=== PATIENT | female | born 1965 | race African-American/Black ===

== ENCOUNTER 2016-03-16 22:44 | Emergency (ER) | payer BC ==
[~2016-03-16] VITALS: Ht 154.9 cm; Wt 91.4 kg
[~2016-03-16 22:44] MED LIST: AUGMENTIN875 MG PO; BENADRYL25 MG PO; BENADRYL50 MG PO; CARVEDILOL25 MG PO; CATAPRES0.2 MG PO; CLINDAMYCIN HC300 MG PO; CLONIDINE HCL0.2 MG PO; COREG25 M1 PO; COUMADIN2 MG PO; CRESTOR10 MG PO; CRESTOR5 MG PO; FLONASE16 G1 BOTH NARES; HYDROCODON-ACE1 EAC8 PO; JANTOVEN7.5 MG PO; K-DUR10 ME1 PO; KLOR-CON20 MEQ PO; METHOCARBAMOL750 MG PO; METOPROLOL SUC100 MG PO; MICRO-K10 ME2 PO; PERCOCET 5/31 TABLET PO; PREDNISONE20 MG PO; PREDNISONE50 MG PO; TIZANIDINE HCL4 MG PO; TRIAMCINOLONE A15 G2 TP; VENTOLIN HFA18 GM IH; WARFARIN SODIUM6 MG PO; ZESTORETIC 20-1 EAC1 NG; ZESTORETIC 20-1 EAC1 PO; ZESTRIL,PRINIVI20 MG PO; ZITHROMAX Z-PA250 MG PO; [UNRECOGNIZED DRUG - OTHER] PO
[2016-03-17 02:37] LABS: HEMATOCRIT 41.4 % (36.0-46.0); MCH 30.1 PG (29.0-34.0); MCHC 33.8 G/DL (30.0-36.0); MEAN PLAT.VOLUME 11.8 uM^3 (9.5-12.4); PLATELET COUNT 153 K/uL (156-360); RBC DIS.WIDTH-CV 13.5 % (11.8-14.6); RBC DIS.WIDTH-SD 43.8 % (39-53); RED BLOOD COUNT 4.65 M/uL (3.80-5.20); WHITE BLOOD COUNT 8.5 K/uL (4.1-10.2)
[2016-03-17 02:42] LABS: CHLORIDE 106 mEq/L (99-109); POTASSIUM 3.2 mEq/L (3.7-5.4); SODIUM 141 mEq/L (136-147)
[2016-03-17 02:44] LABS: GLUCOSE 124 mg/dL (70-99)
[2016-03-17 02:45] LABS: ANION GAP 8 MEQ/L (2-14)
[2016-03-17 02:47] LABS: GFR ESTIMATE (CALCULATED) > 59 mL/min/
[2016-03-17 02:48] LABS: UREA NITROGEN (BUN) 18 mg/dL (9-23)
[2016-03-17 02:52] LABS: TROP-I INTERPRETATION NEGATIVE; TROPONIN-I < 0.01 ng/mL (0.0-0.30)
[2016-03-17 02:56] LABS: QUANTITATIVE HCG < 4.0 MIU/ML
[2016-03-17] MEDS ORDERED: LEVAQUIN750 MG PO (05:13)
[2016-03-17 05:30] VITALS: BP 128/70
== END 2016-03-17 05:44 | disposition left against medical advice (07) ==
LOC: EME 22:44
PROVIDERS: Emergency Medicine
DX: R91.8 Other nonspecific abnormal finding of lung field (principal); J18.9 Pneumonia, unspecified organism; R07.89 Other chest pain; Z95.4 Presence of other heart-valve replacement; Z79.01 Long term (current) use of anticoagulants; F17.200 Nicotine dependence, unspecified, uncomplicated
CPT/HCPCS: 71010; 71260; 80048; 84484; 84702; 85027; 93005; 99281; 99285; J7030

== ENCOUNTER 2016-03-25 11:14 | Emergency (ER) | payer BC ==
[~2016-03-25] VITALS: Ht 152.4 cm; Wt 89.9 kg
[~2016-03-25 11:14] MED LIST changes: +LEVAQUIN750 MG PO
[2016-03-25 14:21] LABS: EOSINOPHIL (%) 0.7 % (0-5); EOSINOPHIL COUNT 0.1 K/uL (0-0.3); HEMATOCRIT 43.3 % (36.0-46.0); IMMATURE GRANULOCYTE (%) 0.1 % (0.0-0.7); IMMATURE GRANULOCYTE COUNT 0.1 K/uL; LYMPHOCYTE COUNT 1.8 K/uL (1.0-2.8); MCH 29.4 PG (29.0-34.0); MCHC 34.4 G/DL (30.0-36.0); MCV 85.6 FL (83-99); MONOCYTE (%) 7.7 % (3-12); MONOCYTE COUNT 0.5 K/uL (0-0.8); NEUTROPHIL COUNT 4.4 K/uL (1.8-6.4); PLATELET COUNT 136 K/uL (156-360); RBC DIS.WIDTH-CV 13.5 % (11.8-14.6); RBC DIS.WIDTH-SD 42.1 % (39-53); RED BLOOD COUNT 5.06 M/uL (3.80-5.20); WHITE BLOOD COUNT 6.8 K/uL (4.1-10.2)
[2016-03-25 14:29] LABS: CHLORIDE 106 mEq/L (99-109); POTASSIUM 3.3 mEq/L (3.7-5.4); SODIUM 140 mEq/L (136-147)
[2016-03-25 14:31] LABS: GLUCOSE 104 mg/dL (70-99)
[2016-03-25 14:32] LABS: D-DIMER ELISA < 0.15 mg/L FEU (< 0.57)
[2016-03-25 14:33] LABS: ANION GAP 12 MEQ/L (2-14)
[2016-03-25 14:35] LABS: GFR ESTIMATE (CALCULATED) > 59 mL/min/
[2016-03-25 14:36] LABS: UREA NITROGEN (BUN) 12 mg/dL (9-23)
[2016-03-25 14:37] LABS: PROTHROMBIN TIME 54.1 (9.2-11.2)
[2016-03-25 14:50] LABS: TROP-I INTERPRETATION NEGATIVE; TROPONIN-I < 0.01 ng/mL (0.0-0.30)
[2016-03-25] MEDS ORDERED: LIDOCARE1 EACH TP (16:45)
[2016-03-25 17:37] VITALS: BP 118/81
== END 2016-03-25 17:45 | disposition left against medical advice (07) ==
LOC: EME 11:14
PROVIDERS: Physician Assistant
DX: R07.81 Pleurodynia (principal); R91.1 Solitary pulmonary nodule; I10 Essential (primary) hypertension; Z95.2 Presence of prosthetic heart valve; Z79.01 Long term (current) use of anticoagulants; F17.200 Nicotine dependence, unspecified, uncomplicated
CPT/HCPCS: 71020; 71275; 80048; 83605; 84484; 85025; 85379; 85610; 87040; 93005; 99281; 99284; J3010; J7030

== ENCOUNTER 2016-10-25 09:33 | Emergency (ER) | payer BC ==
[~2016-10-25] VITALS: Ht 152.4 cm; Wt 88.4 kg
[~2016-10-25 09:33] MED LIST changes: +LIDOCARE1 EACH TP
[2016-10-25] MEDS ORDERED: SIMVASTATIN40 MG PO (10:08)
[2016-10-25] MEDS ORDERED: IPRATROPIUM BRO15 ML BOTH NARES (10:09)
[2016-10-25] MEDS ORDERED: HYDROCODON-ACE1 EAC9 PO (10:09)
[2016-10-25] MEDS ORDERED: METHOCARBAMOL750 MG PO (10:09)
[2016-10-25] MEDS ORDERED: FLUTICASONE PRO16 GM BOTH NARES (10:10)
[2016-10-25] MEDS ORDERED: BENZONATATE100 MG PO (10:10)
[2016-10-25] MEDS ORDERED: COUMADIN10 MG PO (10:11)
[2016-10-25] MEDS ORDERED: TIZANIDINE HCL4 MG PO (10:12)
[2016-10-25 11:10] VITALS: BP 140/98
== END 2016-10-25 11:11 | disposition home or self-care (01) ==
LOC: EME 09:33
DX: M72.2 Plantar fascial fibromatosis (principal)
CPT/HCPCS: 73630; 99281; 99283

== ENCOUNTER 2016-11-17 23:26 | Emergency (ER) | payer BC ==
[~2016-11-17] VITALS: Ht 165.1 cm; Wt 83.1 kg
[~2016-11-17 23:26] MED LIST changes: +BENZONATATE100 MG PO; +COUMADIN10 MG PO; +FLUTICASONE PRO16 GM BOTH NARES; +HYDROCODON-ACE1 EAC9 PO; +IPRATROPIUM BRO15 ML BOTH NARES; +SIMVASTATIN40 MG PO
[2016-11-18 03:04] LABS: HEMATOCRIT 45.1 % (36.0-46.0); MCHC 34.1 G/DL (30.0-36.0); MCV 87.9 FL (83-99); MEAN PLAT.VOLUME 11.7 uM^3 (9.5-12.4); PLATELET COUNT 156 K/uL (156-360); RBC DIS.WIDTH-CV 13.2 % (11.8-14.6); RBC DIS.WIDTH-SD 42.8 % (39-53); RED BLOOD COUNT 5.13 M/uL (3.80-5.20); WHITE BLOOD COUNT 7.8 K/uL (4.1-10.2)
[2016-11-18 03:15] LABS: CHLORIDE 100 mEq/L (99-109); POTASSIUM 2.9 mEq/L (3.7-5.4); SODIUM 141 mEq/L (136-147)
[2016-11-18 03:18] LABS: GLUCOSE 99 mg/dL (70-99)
[2016-11-18 03:19] LABS: ANION GAP 14 MEQ/L (2-14)
[2016-11-18 03:20] LABS: TOTAL BILIRUBIN 0.7 mg/dL (0.0-1.0)
[2016-11-18 03:21] LABS: ALKALINE PHOSPHATASE 56 IU/L (3-129); GFR ESTIMATE (CALCULATED) > 59 mL/min/
[2016-11-18 03:22] LABS: UREA NITROGEN (BUN) 29 mg/dL (9-23)
[2016-11-18 03:24] LABS: CREATINE KINASE 144 IU/L (1-294); TOTAL CK 144 IU/L (1-294)
[2016-11-18 03:30] LABS: CK-MB 2.1 ng/mL (0.0-4.9)
[2016-11-18] MEDS ORDERED: PERCOCET 5/31 TABLET PO (04:01)
[2016-11-18 04:02] VITALS: BP 110/71
== END 2016-11-18 04:02 | disposition home or self-care (01) ==
LOC: EXP 23:26 → EME 23:26 → EXP 11-18 04:02
PROVIDERS: Emergency Medicine
DX: E11.40 Type 2 diabetes mellitus with diabetic neuropathy, unspecified (principal); E87.6 Hypokalemia; Z79.84 Long term (current) use of oral hypoglycemic drugs; I10 Essential (primary) hypertension; F17.200 Nicotine dependence, unspecified, uncomplicated; Z95.2 Presence of prosthetic heart valve; Z88.0 Allergy status to penicillin; Z91.040 Latex allergy status
CPT/HCPCS: 80053; 82550; 82553; 83735; 85027; 99281; 99284

== ENCOUNTER 2016-11-20 23:16 | Emergency (ER) | payer BC ==
[~2016-11-20] VITALS: Ht 152.4 cm; Wt 83.2 kg
[2016-11-20 23:34] LABS: ADD MIUA? YES; BILIRUBIN SMALL; BLOOD NEGATIVE; COLOR AMBER ((YELLOW)); GLUCOSE (STRIP) NEGATIVE; KETONES 20; LEUKOCYTES NEGATIVE; NITRITE NEGATIVE; PROTEIN (STRIP) 100; SPECIFIC GRAVITY 1.033 (1.000-1.030)
[2016-11-21 00:06] LABS: HEMATOCRIT 44.3 % (36.0-46.0); MCH 29.8 PG (29.0-34.0); MCHC 34.5 G/DL (30.0-36.0); MCV 86.4 FL (83-99); MEAN PLAT.VOLUME 12.1 uM^3 (9.5-12.4); PLATELET COUNT 153 K/uL (156-360); RBC DIS.WIDTH-CV 12.9 % (11.8-14.6); RED BLOOD COUNT 5.13 M/uL (3.80-5.20); WHITE BLOOD COUNT 9.1 K/uL (4.1-10.2)
[2016-11-21 00:18] LABS: CHLORIDE 100 mEq/L (99-109); POTASSIUM 3.2 mEq/L (3.7-5.4); SODIUM 138 mEq/L (136-147)
[2016-11-21 00:20] LABS: GLUCOSE 101 mg/dL (70-99)
[2016-11-21 00:21] LABS: ANION GAP 13 MEQ/L (2-14)
[2016-11-21 00:22] LABS: TOTAL BILIRUBIN 0.7 mg/dL (0.0-1.0)
[2016-11-21 00:24] LABS: RED BLOOD CELLS NONE SEEN /HPF (0-5); WHITE BLOOD CELLS 0-5 /HPF (0-5)
[2016-11-21 00:24] LABS: ALKALINE PHOSPHATASE 47 IU/L (3-129); GFR ESTIMATE (CALCULATED) 41 mL/min/
[2016-11-21 00:25] LABS: UREA NITROGEN (BUN) 26 mg/dL (9-23)
[2016-11-21 00:25] LABS: BACTERIA NONE SEEN /HPF; EPITHELIAL CELLS 2+ /HPF; MUCUS 2+ /LPF; UCUL ADDED? NO
[2016-11-21 01:00] LABS: LIPASE 111 U/L (1.0-51.0)
[2016-11-21] MEDS ORDERED: ZOFRAN ODT4 MG PO (01:20)
[2016-11-21] MEDS ORDERED: PERCOCET 5/31 TABLET PO (01:20)
[2016-11-21 01:36] VITALS: BP 118/84
== END 2016-11-21 01:37 | disposition home or self-care (01) ==
LOC: EME 23:16
DX: K85.90 Acute pancreatitis without necrosis or infection, unspecified (principal); E11.9 Type 2 diabetes mellitus without complications; Z79.84 Long term (current) use of oral hypoglycemic drugs; I10 Essential (primary) hypertension; F17.200 Nicotine dependence, unspecified, uncomplicated; Z95.2 Presence of prosthetic heart valve; Z79.01 Long term (current) use of anticoagulants; Z88.0 Allergy status to penicillin; Z91.040 Latex allergy status
CPT/HCPCS: 80053; 81003; 83690; 84702; 85027; 99281; 99284; J2405; J3010; J7030; S0028

== ENCOUNTER 2017-01-29 13:33 | Emergency (ER) | payer BC ==
[~2017-01-29] VITALS: Ht 165.1 cm; Wt 78.7 kg
[~2017-01-29 13:33] MED LIST changes: +ZOFRAN ODT4 MG PO
[2017-01-29 14:03] LABS: ADD MIUA? YES; BILIRUBIN NEGATIVE; BLOOD LARGE; COLOR YELLOW ((YELLOW)); GLUCOSE (STRIP) NEGATIVE; KETONES NEGATIVE; LEUKOCYTES TRACE; NITRITE NEGATIVE; PROTEIN (STRIP) 100; SPECIFIC GRAVITY 1.017 (1.000-1.030); UROBILINOGEN 0.2 MG/DL (0.2-1.0)
[2017-01-29 14:18] LABS: BACTERIA RARE /HPF; EPITHELIAL CELLS 1+ /HPF; MUCUS NONE SEEN /LPF; RED BLOOD CELLS TNTC /HPF (0-5); UCUL ADDED? YES; WHITE BLOOD CELLS 0-5 /HPF (0-5)
[2017-01-29 14:39] LABS: HEMATOCRIT 44.7 % (36.0-46.0); MCH 29.2 PG (29.0-34.0); MCHC 33.3 G/DL (30.0-36.0); MCV 87.5 FL (83-99); MEAN PLAT.VOLUME 12.8 uM^3 (9.5-12.4); PLATELET COUNT 151 K/uL (156-360); RBC DIS.WIDTH-CV 14.1 % (11.8-14.6); RBC DIS.WIDTH-SD 45.5 % (39-53); RED BLOOD COUNT 5.11 M/uL (3.80-5.20); WHITE BLOOD COUNT 13.9 K/uL (4.1-10.2)
[2017-01-29 14:47] LABS: CHLORIDE 104 mEq/L (99-109); POTASSIUM 3.9 mEq/L (3.7-5.4); SODIUM 139 mEq/L (136-147)
[2017-01-29 14:49] LABS: GLUCOSE 132 mg/dL (70-99)
[2017-01-29 14:50] LABS: ANION GAP 11 MEQ/L (2-14)
[2017-01-29 14:51] LABS: TOTAL BILIRUBIN 0.9 mg/dL (0.0-1.0)
[2017-01-29 14:53] LABS: ALKALINE PHOSPHATASE 66 IU/L (3-129); GFR ESTIMATE (CALCULATED) > 59 mL/min/
[2017-01-29 14:54] LABS: UREA NITROGEN (BUN) 19 mg/dL (9-23)
[2017-01-29 15:03] LABS: QUANTITATIVE HCG < 4.0 MIU/ML
[2017-01-29 16:35] LABS: INTER. NORMALIZED RATIO 1.7; PROTHROMBIN TIME 19.5 SEC (10.2-12.9)
[2017-01-29] MEDS ORDERED: BACTRIM,SEPT1 TABLET PO (18:02)
[2017-01-29 18:27] VITALS: BP 100/76
== END 2017-01-29 18:29 | disposition home or self-care (01) ==
LOC: EME 13:33
PROVIDERS: Emergency Medicine
DX: R31.9 Hematuria, unspecified (principal); M54.9 Dorsalgia, unspecified; E11.9 Type 2 diabetes mellitus without complications; I10 Essential (primary) hypertension; Z90.710 Acquired absence of both cervix and uterus; Z95.2 Presence of prosthetic heart valve; Z79.01 Long term (current) use of anticoagulants; F17.200 Nicotine dependence, unspecified, uncomplicated; Z91.040 Latex allergy status; Z88.6 Allergy status to analgesic agent; Z88.0 Allergy status to penicillin
CPT/HCPCS: 74176; 80053; 81003; 84702; 85027; 85610; 87077; 87086; 87186; 99281; 99284